=== PATIENT | female | born 1960 | race Caucasian/White ===

== ENCOUNTER 2019-05-19 08:08 | Outpatient (CLI) | payer MEDICARE, MEDICAID, SELFPAY ==
--- NOTE | 2019-05-19 08:17 | FL_ITS ---
WS: [id number] UPPER GI WITH AIR TECHNICAL: Double contrast upper GI FLUOROSCOPY TIME: 4.2 minutes CLINICAL INFORMATION: EPIGASTRIC PAIN COMPARISON: None. FINDINGS: Swallowing: Normal. Esophagus: Mild esophageal dysmotility with delayed emptying and tertiary contractions. Evidence of r eflux esophagitis in the distal one third esophagus. Mild narrowing of the distal esophagus at the an astomotic junction. Gastroesophageal reflux: Present to the mid and distal esophagus on the upright and supine imaging. M oderate sliding esophageal hiatal hernia involving the proximal gastric pouch with a small diverticul um. Stomach: Prior postoperative changes gastric bypass with proximal gastric pouch. Rapid opacification of anastomotic small bowel Deshawn limb. Visualized small bowel is normal in appearance. Other findings: Cholecystectomy. FL/[place] [id number] IMPRESSION: 1. Prior postoperative changes gastric bypass with proximal gastric pouch. Rap id filling of anastomotic small bowel Deshawn limb. 2. Moderate esophageal hiatal hernia involving the proximal gastric pouch with a small diverticulum. 3. Focal mild narrowing in the distal esophagus at the anastomotic junction. 4. Mild esophageal dysmotility with delayed emptying and active reflux visuali zed in the upright and supine position. 5. Reflux esophagitis in the mid and distal esophagus. 6. Opacified small bowel is normal in appearance.
== END 2019-05-19 08:09 | disposition home or self-care (01) ==
LOC: RAD 08:14
PROVIDERS: Family Provider Social Worker Clinical; Visit Provider Surgery
DX: R10.13 Epigastric pain (principal); K21.0 Gastro-esophageal reflux disease with esophagitis; K44.9 Diaphragmatic hernia without obstruction or gangrene
CPT/HCPCS: 74246

== ENCOUNTER 2019-05-20 09:37 | Day surgery (SDC) | payer MEDICARE, MEDICAID, SELFPAY ==
[2019-05-19 12:52] VITALS: BMI 42.0
--- NOTE | 2019-05-20 09:58 | PM.HPUD ---
H&P update H&P Update: DATE OF SURGERY/PROCEDURE: 05/20/19 DATE H&P PERFORMED: 05/04/19 H&P UPDATE INFORMATION: H&P completed within last 30 days and No changes to prior documentation PREOP DIAGNOSIS: EPIGASTRIC PAIN PRIMARY INDICATION FOR PROCEDURE: The same PLANNED PROCEDURE: Operation Date: 05/20/19 09:15 Proposed Procedures p EGD(Not Applicable) - Mello Arias MD Full H&P Perinent History: Medical/Surgical History: Medical History (Updated 05/05/19 @ 16:22 by Mello Arias MD) Anxiety (Acute) Bipolar disorder (Acute) Nausea (Acute) Family History: Family History (Updated 05/01/19 @ 15:57 by Jacy Leroy RN) Denies family history of Anesthesia complication Bleeding disorder Social History: Social History Smoking and tobacco status: current every day smoker cigarettes Packs smoked per day: 1 Quit status (tobacco): has tried quititng Second hand smoke exposure: No Alcohol intake: current Alcohol intake frequency: 0-2 Drinks per Day Alcohol type: beer and wine Desire information about alcohol rehabilitation?: No Adopted: No Caregiver/support person: No Lives independently: Yes Household members: spouse Housing: House Marital status: Highest education level completed: High School Graduate service: No Current occupational status: retired Current occupational exposures/hazards: No Pets and animals: Yes History of recent travel: No Sexually active: No Current gender identity: Male Ivis/Presybeterian: Denominational Special ivis needs: No Agree to transfusion: No Financial difficulty paying for basics: Decline to Answer
--- NOTE | 2019-05-20 10:12 | P.ANESASSM_ITS ---
Pre-Anesthetic Assessment Pre-Anesthetic Assessment: Height/Weight: Height 1.52 m Weight 97.522 kg Preop Diagnosis: EPIGASTRIC PAIN Proposed Procedure: Operation Date: 05/20/19 09:15 Proposed Procedures p EGD(Not Applicable) - Mello Arias MD Familial anesthetic complications: denies family complication Patient states she wakes up in a panic and has trouble breathing when she wakes up Was Beta Alfonso taken within 24 hours: N/A Social: Social History: Alcohol (case of beer a day if she can afford it) and Tobacco Packs per day: 1/4 Pack years: 40 Exam: Pre-Anes Outpt Exam: alert, oriented x 3 and clear to auscultation bilaterally Airway: Dentition: Chipped and Loose Additional comments: poor, black loose teeth on bottom Pulmonary: Pulmonary: COPD (smoking hx greater than 25 years) CV/HEM: CV/HEM: CAD (heart caths x2 states nothing significant and stress test was negative. 10-12 years ago) and HTN : : None reported Hepatic: Hepatic: None reported GI: GI: GERD and Hiatus hernia Comments: gastric bypass in 2003 Metabolic: Metabolic: Thyroid Musc/skel: Musc/skel: None reported Neuropsych: Neuropsych: Anxiety, Bipolar and Dementia Anesthetic Plan: ASA status: 3 Anesthesia: Anesthesia Evaluation Risk of > 500 ml blood loss (7ml/kg in children): No PFSH Anesthesia PFSH: Social History Smoking and tobacco status: current every day smoker cigarettes Packs smoked per day: 1 Quit status (tobacco): has tried quititng Second hand smoke exposure: No Alcohol intake: current Alcohol intake frequency: 0-2 Drinks per Day Alcohol type: beer and wine Desire information about alcohol rehabilitation?: No Adopted: No Caregiver/support person: No Lives independently: Yes Household members: spouse Housing: House Marital status: Highest education level completed: High School Graduate service: No Current occupational status: retired Current occupational exposures/hazards: No Pets and animals: Yes History of recent travel: No Sexually active: No Current gender identity: Male Ivis/Rastafarian: Tenriism Special ivis needs: No Agree to transfusion: No Financial difficulty paying for basics: Decline to Answer Data Anesthesia Cardiac Studies: No Data to Display
[2019-05-20 10:14] VITALS: BP 140/86; PULSE 99; RESP 18; TEMP 36.6; O2SAT 100
[2019-05-20] MEDS: sodium chloride 0.9% 1,000 ML 30 ML (10:16)
--- NOTE | 2019-05-20 10:27 | SUR.OPER ---
GE JUNCTION 35CM.. GASTRIC POUCH 7CM. GASTRO JEJUNOSTOMY DIAMETER 25MM. 35-37 HIATAL HERNIA
[2019-05-20 10:36] VITALS: BP 125/88; PULSE 74; RESP 18; TEMP 36.6; O2SAT 96
--- NOTE | 2019-05-20 10:41 | ANE.PACU2 ---
 Inpatient post-anesthesia follow up: Airway intact: Yes Vital signs: Temperature 97.9 F Pulse Rate 99 Respiratory Rate 18 Blood Pressure 140/86 Pulse Oximetry 100 Oxygen Delivery Me thod Room Air Oxygen Flow Rate Fraction of Inspir ed Oxygen Hydration adequate: Yes Nausea and vomiting: No Pain level: 2 Mental status: Baseline
[2019-05-20 10:51] VITALS: BP 129/87; PULSE 66; RESP 18; O2SAT 100
== END 2019-05-20 10:58 | disposition home or self-care (01) ==
PROVIDERS: Family Provider Social Worker Clinical; Visit Provider Surgery
PROC: 0DJ08ZZ Inspection of Upper Intestinal Tract, Via Natural or Artificial Opening Endoscopic (ICD-10-PCS; CPT 43235; principal; 2019-05-20 09:15)
DX: R10.13 Epigastric pain (principal); K44.9 Diaphragmatic hernia without obstruction or gangrene; F17.210 Nicotine dependence, cigarettes, uncomplicated; I25.10 Atherosclerotic heart disease of native coronary artery without angina pectoris; J44.9 Chronic obstructive pulmonary disease, unspecified; I10 Essential (primary) hypertension; K21.9 Gastro-esophageal reflux disease without esophagitis; Z98.84 Bariatric surgery status
CPT/HCPCS: 12345; 43235; J2704; J7030

== ENCOUNTER 2019-06-15 17:08 | Emergency (ER) | payer MEDICARE, MEDICAID, SELFPAY ==
[2019-06-15 17:13] VITALS: PULSE 63; RESP 18; TEMP 36.8; O2SAT 99
--- NOTE | 2019-06-15 18:48 | ED_ITS ---
Entered by Jo Ann Alcocer, acting as scribe for Jun 15, 2019 17:08 HPI - Dental/Oral General: Chief complaint: Dental/Oral Stated complaint: TOOTH ACHE Time Seen by Provider: 06/15/19 18:48 Source: patient Mode of arrival: ambulatory Limitations: no limitations History of Present Illness: HPI Narrative: 58 yo Female presents to ED with complaint of dental pain. Pt states that her pain is on the left side, bottom. Pt states that the pain started this morning. Pt has a history of polysubstance abuse and is in [facility]. Pt denies any other symptoms at this time. MD Complaint: tooth pain Location: Tooth # (17) Onset (ago): hour(s) Duration: constant Severity scale (1-10): 10 Relieving factors: nothing Exacerbating factors: nothing Context: other (history of poly substance abuse) Associated symptoms: Reports no associated symptoms; Denies ear or mastoid pain, fever(s), painful swallowing, sore throat or tongue swelling Treatment prior to arrival: none Review of Systems General: Reports: other (negative unless marked) Const: Denies: fever, chills, body aches, fatigue, malaise or diaphoresis Eyes: Denies: change in vision or blurry vision ENMT: Reports: dental pain; Denies: throat pain, painful swallowing, hoarseness, ear pain, ear discharge, Change in hearing or nasal discharge Card: Denies: chest pain, palpitations, irregular heart rhythm, syncope, pre- syncope, shortness of breath on exertion or shortness of breath when lying down Resp: Denies: shortness of breath, productive cough, non-productive cough, wheezing, coughing up blood or chest congestion GI: Denies: abdominal pain, nausea, vomiting, vomiting blood, coffee grounds in vomit, diarrhea, constipation, cramping, blood in stool or black tarry stool : Denies: flank pain, painful urination, urinary frequency, urinary urgency, decreased urine ouput, urinary incontinence or blood in urine Musc: Denies: neck pain, back pain, extremity pain, extremity swelling, joint pain, joint swelling, joint warmth or joint stiffness Skin/Breast: Denies: rash, skin tenderness or yellow skin Neuro: Denies: headache, numbness in extremities, weakness in extremities, changes in sensation, lack of coordination, difficulty walking, dizziness, vertigo or confusion Endo: Denies: excessive thirst, tired all the time, cold intolerance, excessive sweating, flushing or hot flashes Varun/Lymph: Denies: easy bruising, easy bleeding, petechiae or enlarged lymph nodes All/Imm: Denies: hives, throat swelling, tongue swelling, facial swelling or acute wheezing PFSH ED PFSH: Medical History Anxiety Bipolar disorder Nausea Surgical History Epigastric pain Hiatal hernia was appreciated otherwise normal gastric anatomy status post gastric bypass except for a dilated gastrojejunostomy. History of 2 sections History of carpal tunnel surgery of left wrist History of laparoscopic cholecystectomy History of left knee replacement History of right knee joint replacement History of Deshawn-en-Y gastric bypass (~2003) Status post ORIF of fracture of ankle Family History Denies family history of Anesthesia complication Bleeding disorder Social History Smoking and tobacco status: current every day smoker cigarettes Packs smoked per day: 1 Quit status (tobacco): has tried quititng Second hand smoke exposure: No Alcohol intake: current Alcohol intake frequency: 0-2 Drinks per Day Alcohol type: beer and wine Desire information about alcohol rehabilitation?: No Adopted: No Caregiver/support person: No Lives independently: Yes Household members: spouse Housing: House Marital status: Highest education level completed: High School Graduate service: No Current occupational status: retired Current occupational exposures/hazards: No Pets and animals: Yes History of recent travel: No Sexually active: No Current gender identity: Male Ivis/Methodist: Anglican Special ivis needs: No Agree to transfusion: No Financial difficulty paying for basics: Decline to Answer Physical Exam Const: COMMON NORMALS: no apparent distress, oriented x3, no limitations, healthy appearing and well nourished EXAM LIMITATIONS: no altered mental status GENERAL APPEARANCE: cooperative, well kempt and well developed ORIENTATION/CONSCIOUSNESS: Yes awake HENMT: COMMON NORMALS: normocephalic, head/scalp atraumatic, hearing grossly normal bilaterally, external ears normal, EAC's normal, external nose normal and moist oral mucous membranes HEAD & SCALP: normal to inspection, normocephalic and atraumatic FACE & SINUS: normal facial exam and face symmetric NOSE: external nose normal and nares normal EXTERNAL EAR: Yes external ears normal EXTERNAL AUDITORY CANAL: EAC's normal MOUTH: oral and palatal mucosa normal and tongue normal TEETH & GINGIVA: Yes abnormal tooth and associated gingiva lower left third molar tender Eye: COMMON NORMALS: PERRL, EOMs intact bilaterally, conjunctivae normal and no scleral icterus GENERAL EYE: normal appearance of both eyes and normal light reflex CONJUNCTIVA: Yes conjunctivae normal SCLERA: sclerae normal CORNEA: Yes corneas normal PUPIL: Yes PERRL DIRECT OPHTHALMOSCOPY: Yes normal light reflex Neck/C-Spine: COMMON NORMALS: full ROM, no lymphadenopathy, supple, no meningeal signs and no JVD GENERAL: Yes normal visual inspection and Yes trachea midline CERVICAL SPINE: Yes cervical ROM normal Chest: COMMONS NORMALS: inspection of chest normal and palpation of chest normal Resp: COMMON NORMALS: normal respiratory effort, no retractions, no use of accessory muscles and clear to auscultation bilaterally EFFORT & INSPECTION: Yes able to speak in complete sentences AUSCULTATION: clear to auscultation bilaterally Cardio: COMMON NORMALS: no JVD, regular rate, regular rhythm, S1 normal heart sound, S2 normal heart sound, no gallops, no clicks, no murmurs and no rub JUGULAR VENOUS DISTENTION: no JVD RATE: regular rate RHYTHM: regular rhythm HEART SOUNDS: S1 normal and S2 normal GI: COMMON NORMALS: soft to palpation, non-tender, no hepatosplenomegaly and no masses INSPECTION: Yes normal to inspection PALPATION: Yes soft and Yes no hepatosplenomegaly : COMMON NORMALS: Yes no CVA tenderness BLADDER/KIDNEY EXAM: Yes no CVA tenderness Back/Pelvis: COMMON NORMALS: no CVA tenderness, thoracic and lumbar spine normal to inspection, no thoracic nor lumbar tenderness and thoraco-lumbar ROM normal Extremity: COMMON NORMALS: normal to inspection, full ROM, normal capillary refill, no joint enlargement, no clubbing, cyanosis or edema and no calf tenderness Neuro: COMMON NORMALS: oriented x3, CN's II-XII intact bilaterally, moves all extremities, no focal motor deficits and no sensory deficits noted MENINGEAL SIGNS: Yes no meningeal signs Psych: COMMON NORMALS: mental status grossly normal, thought process normal, cooperative, affect normal, speech normal and activity/motor behavior normal APPEARANCE: Yes well kempt SPEECH: Yes normal speech THOUGHT PROCESS: normal thought process Skin: COMMON NORMALS: no rashes or lesions noted, skin turgor normal, no jaundice, no petechiae and no mottling GENERAL SKIN EXAM: no rashes or lesions noted and turgor normal Course Vital Signs: Vital signs: Vital Signs Temperature 98.2 F 06/15/19 17:13 Pulse Rate 67 06/15/19 19:54 Respiratory Rate 18 06/15/19 19:54 Blood Pressure 125/74 06/15/19 19:54 Pulse Oximetry 98 06/15/19 19:54 MDM - Dental/Oral MDM Narrative: Medical decision making narrative: Bettie has no sign of Mango's angina, deep space infection, airway compromise or otherwise. She is overall very poor dentition but her left inferior most posterior molar is tender. I will place her on Cleocin and she agrees to take Tylenol Motrin as needed for pain. We did review at length the signs and symptoms for which to return to ER and she agrees to do so if necessary. Otherwise she states she will follow-up with her dentist as instructed. Discharge Plan Discharge Patient Disposition: Home, Self-Care Clinical Impression: Toothache, Dental caries Condition: Stable Prescriptions: New Cleocin HCl 150 mg capsule 300 mg PO Q6H 10 Days Qty: 80 RF: 0 No Action quetiapine 400 mg tablet 400 mg PO ONCE RF: 0 buspirone 15 mg tablet 15 mg PO TID RF: 0 venlafaxine [Effexor XR] 150 mg capsule,extended release 24hr 225 mg PO QAM RF: 0 atorvastatin 40 mg tablet 40 mg PO QDAY RF: 0 lisinopril 20 mg tablet 20 mg PO QDAY RF: 0 levothyroxine 75 mcg capsule 75 mcg PO QDAY RF: 0 Discharge Orders: Discharge Order (Routine); Ordered 06/15/19 Ordered By: Nikki Chao Referrals: Leena Morrison, ENVIRONMENTAL HEALTH SANITARIAN-FLIGHT ENGINEER INSTRUCTOR [Family Provider] - Discharge Diet: Advance as tolerated Patient Instructions: Dental Caries (ED), Toothache (ED) Activity Restrictions/Additional Instructions: Please return to the ER immediately for any of the signs or symptoms listed on your discharge instruction sheets, worsening/changing of your symptoms, you are not getting better as quickly as expected, or for ANY other cause or concerns. Alternate Tylenol and Motrin for your pain as well as Anusol which is available [id number]. Be certain to follow-up with a dentist as soon as possible for definitive management of your cavity. Discharge Date/Time: 06/15/19 19:56 Coding Level of Care Code ED Vault Teller for Chg Fwd Exam Comprehensive The documentation recorded by the Leodan coe Carmen, accurately reflects the service I personally performed and the decisions made by Jeremie puente Eli N Jun 15, 2019 17:08
[2019-06-15] MEDS: clindamycin 150 mg Capsule 450 MG PO (19:19)
[2019-06-15 19:54] VITALS: BP 125/74; PULSE 67; RESP 18; O2SAT 98
== END 2019-06-15 19:56 | disposition home or self-care (01) ==
PROVIDERS: Emergency Provider Emergency Medicine; Family Provider Social Worker Clinical
DX: K02.9 Dental caries, unspecified (principal); K08.89 Other specified disorders of teeth and supporting structures; F17.210 Nicotine dependence, cigarettes, uncomplicated
CPT/HCPCS: 12345; 99281; 99283

== ENCOUNTER → 2019-07-23 08:41 | Outpatient (BNVA) | payer MEDICARE, MEDICAID, SELFPAY | PROVIDERS: Family Provider Social Worker Clinical; PCP Internal Medicine; Visit Provider Psychiatry & Neurology Psychiatry | DX: F60.9 Personality disorder, unspecified (principal); F17.210 Nicotine dependence, cigarettes, uncomplicated; F33.2 Major depressive disorder, recurrent severe without psychotic features; F15.20 Other stimulant dependence, uncomplicated; F10.20 Alcohol dependence, uncomplicated | CPT/HCPCS: 99213 ==

== ENCOUNTER → 2019-08-06 09:04 | Outpatient (BNVA) | payer MEDICARE, MEDICAID, SELFPAY | PROVIDERS: Family Provider Social Worker Clinical; PCP Internal Medicine; Visit Provider Psychiatry & Neurology Psychiatry | DX: F60.9 Personality disorder, unspecified (principal); F17.210 Nicotine dependence, cigarettes, uncomplicated; F33.2 Major depressive disorder, recurrent severe without psychotic features; F15.20 Other stimulant dependence, uncomplicated; F10.20 Alcohol dependence, uncomplicated | CPT/HCPCS: 99213 ==

== ENCOUNTER → 2019-09-03 07:38 | Outpatient (BNVA) | payer MEDICARE, MEDICAID, SELFPAY | PROVIDERS: Family Provider Social Worker Clinical; PCP Internal Medicine; Visit Provider Psychiatry & Neurology Psychiatry | DX: F60.9 Personality disorder, unspecified (principal); F17.210 Nicotine dependence, cigarettes, uncomplicated; F33.2 Major depressive disorder, recurrent severe without psychotic features; F15.20 Other stimulant dependence, uncomplicated; F10.20 Alcohol dependence, uncomplicated | CPT/HCPCS: 99213 ==

== ENCOUNTER 2019-10-06 06:00 | Outpatient (RCR) | payer MEDICARE, MEDICAID, SELFPAY | END 2019-10-06 23:59 | disposition home or self-care (01) | LOC: MPT 06:00 | PROVIDERS: PCP Family Medicine; Referring Provider Registered Nurse; Visit Provider Registered Nurse | DX: R26.9 Unspecified abnormalities of gait and mobility (principal); Z91.81 History of falling | CPT/HCPCS: 97110; 97161 ==

== ENCOUNTER 2022-02-13 14:15 | Inpatient (IN) | payer MEDICARE, MEDICAID, SELFPAY ==
[2022-02-13 14:23] VITALS: BMI 23.3
[2022-02-13 14:24] VITALS: BP 183/78; PULSE 82; RESP 17; TEMP 36.6; O2SAT 95
[2022-02-13] MEDS: LORazepam 2 mg Tablet PO (17:55)
[2022-02-13] MEDS: quetiapine 300 mg Tablet PO (20:34)
[2022-02-13] MEDS: quetiapine 100 mg Tablet PO (20:34)
[2022-02-13] MEDS: dicyclomine 10 mg Capsule PO (20:34)
[2022-02-13 22:00] VITALS: BP 100/64; PULSE 96; RESP 15; TEMP 36.8; O2SAT 97
[2022-02-14 06:00] VITALS: BP 111/84; PULSE 80; RESP 18; TEMP 36.4; O2SAT 98
[2022-02-14] MEDS: venlafaxine ER (24HR) 37.5 mg Capsule 112.5 MG PO (06:27)
[2022-02-14] MEDS: quetiapine 100 mg Tablet 200 MG PO (06:28)
[2022-02-14] MEDS: atorvastatin 40 mg Tablet 20 MG PO (07:49)
[2022-02-14] MEDS: lithium carbonate 300 mg Capsule PO ×2 (07:49→17:08)
[2022-02-14] MEDS: pantoprazole DR 40 mg Tablet PO (07:49)
[2022-02-14] MEDS: folic acid 1 mg Tablet PO (07:49)
[2022-02-14] MEDS: multivitamin therapeutic Tablet 1 TAB PO (07:49)
[2022-02-14] MEDS: dicyclomine 10 mg Capsule PO ×4 (07:50→20:23)
[2022-02-14] MEDS: levothyroxine 75 mcg Tablet PO (07:50)
[2022-02-14] MEDS: thiamine 100 mg Tablet PO (07:50)
[2022-02-14] MEDS: LORazepam 2 mg Tablet PO ×2 (08:28→11:28)
--- NOTE | 2022-02-14 10:12 | P.NPUHP_ITS ---
Providers/Chief Complaint Admitting Physician: Torey Lopez MD Primary Care Provider: Yoan Escoto Chief Complaint: SI HPI NPU History of Present Illness Yolie Mccann is a 61 year old female who presents the outside hospital with concern for suicidal thoughts, intoxicated with a history of other addiction as well who was transferred to [facility] and admitted to the neuropsychiatric unit for definitive treatment of those issues. She is currently taking Effexor, Seroquel, and Bul[place]de. She presents today reporting she ?fell apart? last night and needed to go to a safe place. She has been psychiatrically hospitalized 4 times, sees a nurse practitioner for her medications and has been on a number of medications. She reports she quit tobacco in August 2020, alcohol daily, marijuana once or twice but not currently, methamphetamine which she began at 45 years old and stopped a year ago and denies any other illicit drug use. She has been to several rehabs over the course of her life, had a DUI 9 years ago but no other drug and alcohol related charges. Her mental health issues began in elementary school as people were bullying her at the time. Her depression includes passive wish, suicidal ideation, and 12 suicide attempts. She endorses having a plan to take Klonopin with beer to commit suicide. She reports self-injurious behaviors, the last time of which was a couple of years ago. She had begun drinking when she was 10 years old which became problematic in high school. She had presented to the hospital after drinking heavily and reports she does not know where she is currently as they had just placed us here. She denies expressing suicidal ideation in the hospital and endorses she only needs help ?mellowing herself out?. Psychiatric History: As above. Substance Abuse History: As above. Family History: She reports mental health and addiction issues on both sides of the family and denies suicide attempts or completions on either side of the family. Developmental History: She denies any issues with her or , learned to walk and talk and met her developmental milestones on time, and denies any need for speech therapy, learning support, emotional support or special education classes. Psychosocial History: She reports her parents were together when she was born and remained together. S he has a younger brother who is a product of the same union. Neither of her parents have any additional children. She described her childhood as alright and reports emotional abuse from school but denies physical or sexual abuse. She denies CYS involvement. She was attacked by her services dog and required 40 stitches. She graduated high school and got her PhD in veterinary medicine. She endorses being heterosexual with her longest relationship being 10 years. She has been and once, has 2 biological children, has never been in the and endorses being anabaptist. 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 She currently lives in an apartment by herself with her dog. Legal History: She has been to half-way 3 times, the longest time of which was 6 months. Medical History: She reports an allergy to morphine. She reports having had bilateral knee replacements and unilateral ankle replacement. 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 She delivered her children vaginally. She began menstruating around 11 and reports they were normal. Meds NPU Home Medications Medication Instructions Recorded Confirmed Last Taken Type levothyroxine 75 mcg capsule 75 mcg PO DAILY #30 caps 06/26/19 02/13/22 02/13/22 09:00 Rx folic acid 1 mg tablet 1 mg PO DAILY #30 tabs 08/12/19 02/13/22 02/13/22 09:00 Rx atorvastatin 10 mg tablet 10 mg PO DAILY 02/13/22 02/13/22 02/13/22 09:00 History dicyclomine 10 mg capsule 10 mg PO QID 02/13/22 02/13/22 02/13/22 09:00 History lithium carbonate 300 mg tablet 300 mg PO BID 02/13/22 02/13/22 02/13/22 09:00 History omeprazole 20 mg capsule,delayed 20 mg PO BID 02/13/22 02/13/22 02/13/22 09:00 History release quetiapine 200 mg tablet 200 mg PO QAM 02/13/22 02/13/22 02/13/22 09:00 History quetiapine 400 mg tablet 400 mg PO BEDTIME 02/13/22 02/13/22 02/12/22 21:00 Hi story venlafaxine 37.5 mg 112.5 mg PO QAM 02/13/22 02/13/22 02/13/22 09:00 History capsule,extended release 24 hr Allergies Allergy/AdvReac Type Severity Reaction Status Date / Time morphine Allergy Severe ALGY-Hives Verified 06/25/19 11:39 PFSH NPU PFSH: Medical History (Updated 02/14/22 @ 14:48 by Torey Lopez MD) Anxiety Bipolar disorder Black tarry stools Bloody stools Nausea Thyroid condition Surgical History Epigastric pain Hiatal hernia was appreciated otherwise normal gastric anatomy status post gastric bypass except for a dilated gastrojejunostomy. History of 2 sections History of carpal tunnel surgery of left wrist History of laparoscopic cholecystectomy History of left knee replacement History of right knee joint replacement History of Deshawn-en-Y gastric bypass (~2003) Status post ORIF of fracture of ankle Family History Denies family history of Anesthesia complication Bleeding disorder Social History (Updated 06/26/19 @ 09:13 by Edmundo Almendarez LPN) Smoking and tobacco status: current every day smoker cigarettes Packs smoked per day: 1 Quit status (tobacco): has tried quititng Number of times tried to quit tobacco: 8 Second hand smoke exposure: No Alcohol intake: current Alcohol intake frequency: 0-2 Drinks per Day Alcohol type: beer and wine Desire information about alcohol rehabilitation?: No Adopted: No Caregiver/support person: No Lives independently: Yes Household members: spouse Housing: House Marital status: Highest education level completed: High School Graduate service: No Current occupational status: retired Current occupational exposures/hazards: No Pets and animals: Yes History of recent travel: No Sexually active: No Current gender identity: Male Ivis/Zoroastrian: Christianity Special ivis needs: No Agree to transfusion: No Financial difficulty paying for basics: Decline to Answer Mental Status Exam MSE Comments: This is well nourished, older white female, looking much older than her stated age, with limited grooming and eye contact. No abnormal movements except for mild psychomotor retardation. Cooperative with exam in mild distress. Speech was slightly decreased volume and normal rate. Mood described as jeannine crabby, affect is congruent. Thought process, organized. Thought content: patient endorses suicidal and homicidal ideation, no delusions reported but delusions noted, and denies auditory or visual hallucinations though she reports seeing her tv flashing red. Attention and concentration are intact and memory appeared reliable but none were formally tested. She is alert and oriented times three. Insight and judgment are limited. Impulse control is limited. Vitals/I&O/Wt Last Vital Signs Temp 97.6 F 02/14/22 06:00 Pulse 80 02/14/22 06:00 Resp 18 02/14/22 06:00 BP 111/84 02/14/22 06:00 Pulse Ox 98 02/14/22 06:00 O2 Del Method 02/14/22 06:00 Weight last 48 hrs Weight 59.738 kg A&P Assessment and plan (1) Major depressive disorder, recurrent severe without psychotic features: (2) Nicotine dependence, unspecified, uncomplicated: Qualifiers: Nicotine product type: cigarettes Qualified Code(s): F17.210 - Nicotine dependence, cigarettes, uncomplicated (3) Unspecified personality disorder: (4) Other stimulant dependence, uncomplicated: (5) Alcohol use disorder, severe, dependence: (6) Epigastric pain: (7) Methamphetamine use disorder, severe: Plan This is a 61 year old white woman with a history of trauma, alcohol and methamphetamine use and genetic loading for mental health and addiction issues, who presents after a night of heavy drinking reporting she was not feeling safe, endorsing suicidal and homicidal ideation, and wanting to discuss changes in her medications and treatment at this time. 1. Continue current medications 2. Encourage individual, group and milieu therapy 3. Continue q-15 minute check for safety 4. Recommend sober living treatment at the highest level of care to which the patient is willing to commit. 5. Placed on [facility] protocol and gather collateral information. Involuntary Hold Information 96 Hour Hold: 96 Hour Involuntary Admission: Yes 96 Hour Hold Ending Date: 02/19/22 96 Hour Hold Ending Time: 14:10 Attestations NPU Medical Necessity Statement*: Inpatient hospitalization is medically necessary and the clinically appropriate intervention at this time. We will monitor medications and make changes as indicated. Patient will be in the hospital for over two midnights. Likely length of stay is three to five days. Coding Level of Care Code Acute Skin Former for [facility] Castellano Diagnoses Major depressive disorder, recurrent severe without psychotic features F33.2 Nicotine dependence, unspecified, uncomplicated F17.210 Nicotine product type: cigarettes Unspecified personality disorder F60.9 Other stimulant dependence, uncomplicated F15.20 Alcohol use disorder, severe, dependence F10.20 Epigastric pain R10.13 Methamphetamine use disorder, severe F15.20
--- NOTE | 2022-02-14 10:14 | PC.NURSE ---
PT CAME TO NURSES STATION STATING SHE WANTED TO LEAVE AMA. PT WAS EDUCATED SHE IS ON 96H HOLD. PT STATED SHE WAS GOING TO GO HOME AND HURT HERSELF SHE WAS JUST GOING TO GO HOME AND KILL HER NEIGHBOR. PROVIDER NOTIFIED.
[2022-02-14] MEDS: OLANZapine 5 mg ODT PO (10:25)
[2022-02-14] MEDS: haloperidol 5 mg Tablet PO (10:25)
[2022-02-14] MEDS: diphenhydrAMINE 50 mg Capsule PO (11:30)
[2022-02-14 14:00] VITALS: RESP 16
[2022-02-14] MEDS: quetiapine 100 mg Tablet PO (20:23)
[2022-02-14] MEDS: quetiapine 300 mg Tablet PO (20:23)
[2022-02-14] MEDS: trazodone 50 mg Tablet PO (20:23)
[2022-02-14 22:00] VITALS: BP 107/74; PULSE 75; RESP 16; TEMP 37; O2SAT 97
[2022-02-15] MEDS: acetaminophen 325 mg Tablet 650 MG PO ×3 (01:36→16:18)
[2022-02-15] MEDS: ondansetron 4 MG Tablet PO (01:37)
--- NOTE | 2022-02-15 01:40 | PC.NURSE ---
changed pt colostomy bag pt tolerated it well.
[2022-02-15 05:59] VITALS: BP 107/74; PULSE 75; RESP 16; TEMP 37; O2SAT 97
[2022-02-15] MEDS: venlafaxine ER (24HR) 37.5 mg Capsule 112.5 MG PO (06:07)
[2022-02-15] MEDS: quetiapine 100 mg Tablet 200 MG PO (06:07)
[2022-02-15 06:34] VITALS: BP 138/76; PULSE 63; RESP 17; TEMP 36.8; O2SAT 98
[2022-02-15] MEDS: folic acid 1 mg Tablet PO (08:45)
[2022-02-15] MEDS: atorvastatin 40 mg Tablet 20 MG PO (08:45)
[2022-02-15] MEDS: thiamine 100 mg Tablet PO (08:46)
[2022-02-15] MEDS: pantoprazole DR 40 mg Tablet PO (08:46)
[2022-02-15] MEDS: dicyclomine 10 mg Capsule PO ×4 (08:46→20:29)
[2022-02-15] MEDS: multivitamin therapeutic Tablet 1 TAB PO (08:46)
[2022-02-15] MEDS: levothyroxine 75 mcg Tablet PO (08:46)
[2022-02-15] MEDS: lithium carbonate 300 mg Capsule PO ×2 (08:46→18:18)
--- NOTE | 2022-02-15 13:16 | W.PM.NPUPNS ---
Subjective NPU Subjective: Patient presented today reporting that she is feeling okay. She reports that she is unclear why she was on the dosing of Effexor XR she finds her self on. We discussed the risks, benefits and alternatives of increasing her Effexor XR to 150 mg p.o. daily and she understood and agreed to proceed as documented in this note. Mental Status Exam MSE Comments: This is well nourished, older white female, looking much older than her stated age, with limited grooming and eye contact. No abnormal movements except for mild psychomotor retardation. Cooperative with exam in mild distress. Speech was slightly decreased volume and normal rate. Mood described as okay, affect is congruent. Thought process, organized. Thought content: patient endorses suicidal and homicidal ideation, no delusions reported but delusions noted, and denies auditory or visual hallucinations though she reports seeing her tv flashing red. Attention and concentration are intact and memory appeared reliable but none were formally tested. She is alert and oriented times three. Insight and judgment are limited. Impulse control is limited. Vitals/I&O/Wt Last Vital Signs Temp 98.3 F 02/15/22 06:34 Pulse 63 02/15/22 06:34 Resp 17 02/15/22 06:34 BP 138/76 02/15/22 06:34 Pulse Ox 98 02/15/22 06:34 O2 Del Method 02/15/22 06:34 Weight last 48 hrs Weight 59.738 kg A&P Assessment and plan (1) Major depressive disorder, recurrent severe without psychotic features: (2) Nicotine dependence, unspecified, uncomplicated: Qualifiers: Nicotine product type: cigarettes Qualified Code(s): F17.210 - Nicotine dependence, cigarettes, uncomplicated (3) Unspecified personality disorder: (4) Other stimulant dependence, uncomplicated: (5) Alcohol use disorder, severe, dependence: (6) Epigastric pain: (7) Methamphetamine use disorder, severe: Plan This is a 61 year old white woman with a history of trauma, alcohol and methamphetamine use and genetic loading for mental health and addiction issues, who presents after a night of heavy drinking reporting she was not feeling safe, endorsing suicidal and homicidal ideation, and wanting to discuss changes in her medications and treatment at this time. 1. Continue current medications. Increase Effexor XR to 150 mg p.o. daily. 2. Encourage individual, group and milieu therapy 3. Continue q-15 minute check for safety 4. Recommend sober living treatment at the highest level of care to which the patient is willing to commit. 5. Placed on [facility] protocol and gather collateral information. Involuntary Hold Information 96 Hour Hold: 96 Hour Involuntary Admission: Yes 96 Hour Hold Ending Date: 02/19/22 96 Hour Hold Ending Time: 14:10 Attestations NPU Medical Necessity Statement*: Inpatient hospitalization is medically necessary and the clinically appropriate intervention at this time. We will monitor medications and make changes as indicated. Likely length of stay is 3-5 days. Coding Level of Care Code Acute Motor Pool Clerk for g Fwd Diagnoses Major depressive disorder, recurrent severe without psychotic features F33.2 Nicotine dependence, unspecified, uncomplicated F17.210 Nicotine product type: cigarettes Unspecified personality disorder F60.9 Other stimulant dependence, uncomplicated F15.20 Alcohol use disorder, severe, dependence F10.20 Epigastric pain R10.13 Methamphetamine use disorder, severe F15.20
[2022-02-15 14:00] VITALS: BP 119/80; PULSE 68; RESP 17; TEMP 36.4; O2SAT 100
[2022-02-15] MEDS: hyDROXYzine 25 mg Capsule 50 MG PO ×2 (14:17→16:19)
[2022-02-15] MEDS: quetiapine 100 mg Tablet PO (20:29)
[2022-02-15] MEDS: quetiapine 300 mg Tablet PO (20:29)
[2022-02-15 22:00] VITALS: BP 119/80; PULSE 68; RESP 17; TEMP 36.4; O2SAT 100
[2022-02-16 06:00] VITALS: BP 114/79; PULSE 72; RESP 17; TEMP 37; O2SAT 97
[2022-02-16] MEDS: quetiapine 100 mg Tablet 200 MG PO (06:07)
[2022-02-16] MEDS: venlafaxine ER (24HR) 37.5 mg Capsule 150 MG PO (06:08)
[2022-02-16] MEDS: thiamine 100 mg Tablet PO (09:24)
[2022-02-16] MEDS: pantoprazole DR 40 mg Tablet PO (09:24)
[2022-02-16] MEDS: atorvastatin 40 mg Tablet 20 MG PO (09:24)
[2022-02-16] MEDS: multivitamin therapeutic Tablet 1 TAB PO (09:24)
[2022-02-16] MEDS: folic acid 1 mg Tablet PO (09:24)
[2022-02-16] MEDS: lithium carbonate 300 mg Capsule PO ×2 (09:24→18:23)
[2022-02-16] MEDS: dicyclomine 10 mg Capsule PO ×4 (09:24→21:00)
[2022-02-16] MEDS: levothyroxine 75 mcg Tablet PO (09:24)
--- NOTE | 2022-02-16 09:41 | PC.NURSE ---
Patient denies HI and AH. Patient stated she constantly has suicidal thoughts. She states she knows how to do it now and would do it by overdosing with a bunch of pills or I'd venetian blind assembler front of a train. She also says she kept seeing auditory hallucinations of red flashes on the tv and played with a hologram of a kid's ball last night. She stated another patient had made a comment this morning that she smelled bad and that it made her feel really bad about herself. Patient was calm and cooperative throughout assessment.
[2022-02-16] MEDS: OLANZapine 5 mg ODT PO (12:46)
[2022-02-16 14:00] VITALS: BP 117/82; PULSE 82; RESP 18; TEMP 36.9; O2SAT 98
[2022-02-16] MEDS: diphenhydrAMINE 50 mg Capsule PO (15:45)
[2022-02-16] MEDS: LORazepam 2 mg Tablet PO (15:45)
[2022-02-16] MEDS: haloperidol 5 mg Tablet PO (15:45)
--- NOTE | 2022-02-16 16:33 | W.PM.NPUPNS ---
Subjective NPU Subjective: Patient presents today having recently had superficial cuts made by a part of her spoon to release the endorphins. Vet a long discussion about her self-injurious behavior which she reports goes back 20 years. She reports that is what her service dogs have helped her with staying away from that behavior. We discussed the likelihood of adding Abilify as she reports that what she is taking is not currently managing that after a discussion of the risks, benefits and alternatives we agreed that we would check her lithium level and then consider Abilify. Otherwise she reports that she is always in the state of internal anger and rage and that self-injurious behaviors have helped release that irritability Mental Status Exam MSE Comments: This is well nourished, older white female, looking much older than her stated age, with limited grooming and eye contact. Superficial scratch ashley on her left anterior forearm from SIB. no abnormal movements except for mild psychomotor agitation. Cooperative with exam in mild to moderate distress. Speech was slightly decreased volume and normal rate. Mood described as irritable/agitated, affect is congruent. Thought process, organized. Thought content: patient endorses suicidal and homicidal ideation, no delusions reported but delusions noted, and denies auditory or visual hallucinations though she reports seeing her tv flashing red. Attention and concentration are intact and memory appeared reliable but none were formally tested. She is alert and oriented times three. Insight and judgment are limited. Impulse control is limited. Vitals/I&O/Wt Last Vital Signs Temp 98.4 F 02/16/22 14:00 Pulse 82 02/16/22 14:00 Resp 18 02/16/22 14:00 BP 117/82 02/16/22 14:00 Pulse Ox 98 02/16/22 14:00 O2 Del Method 02/16/22 06:00 A&P Assessment and plan (1) Major depressive disorder, recurrent severe without psychotic features: (2) Nicotine dependence, unspecified, uncomplicated: Qualifiers: Nicotine product type: cigarettes Qualified Code(s): F17.210 - Nicotine dependence, cigarettes, uncomplicated (3) Unspecified personality disorder: (4) Other stimulant dependence, uncomplicated: (5) Alcohol use disorder, severe, dependence: (6) Epigastric pain: (7) Methamphetamine use disorder, severe: Plan This is a 61 year old white woman with a history of trauma, alcohol and methamphetamine use and genetic loading for mental health and addiction issues, who presents after a night of heavy drinking reporting she was not feeling safe, endorsing suicidal and homicidal ideation, and wanting to discuss changes in her medications and treatment at this time. 1. Continue current medications. Increase Effexor XR to 150 mg p.o. daily. We will consider initiating Abilify after we get a lithium level to identify whether an increase is indicated. 2. Encourage individual, group and milieu therapy 3. Continue q-15 minute check for safety 4. Recommend sober living treatment at the highest level of care to which the patient is willing to commit. 5. Placed on [facility] protocol and gather collateral information. Involuntary Hold Information 96 Hour Hold: 96 Hour Involuntary Admission: Yes 96 Hour Hold Ending Date: 02/19/22 96 Hour Hold Ending Time: 14:10 Attestations U Medical Necessity Statement*: Inpatient hospitalization is medically necessary and the clinically appropriate intervention at this time. We will monitor medications and make changes as indicated. Likely length of stay is 3-5 days. Coding Level of Care Code Acute Casing Operator for [facility] Fwd Diagnoses Major depressive disorder, recurrent severe without psychotic features F33.2 Nicotine dependence, unspecified, uncomplicated F17.210 Nicotine product type: cigarettes Unspecified personality disorder F60.9 Other stimulant dependence, uncomplicated F15.20 Alcohol use disorder, severe, dependence F10.20 Epigastric pain R10.13 Methamphetamine use disorder, severe F15.20
--- NOTE | 2022-02-16 17:58 | PC.NURSE ---
Patient broke a spoon and has several self-inflicted superficial cuts to her left forearm made by the broken spoon. Patient calmly asked for something to put on the wound and refused to tell staff what she used. Upon searching her room and patient, staff found the broken spoon. When this RN asked if anything in particular brought on her suicidal thoughts she stated, Just...life sucks. Just everything. I get so angry. I'd rather just take a gun and blow my head off. Patient verbally redirected and medicated with success.
[2022-02-16 20:17] VITALS: BP 93/60; PULSE 83; RESP 16; O2SAT 95
[2022-02-16] MEDS: quetiapine 300 mg Tablet PO (21:00)
[2022-02-16] MEDS: quetiapine 100 mg Tablet PO (21:00)
[2022-02-17] MEDS: quetiapine 100 mg Tablet 200 MG PO (05:13)
[2022-02-17] MEDS: venlafaxine ER (24HR) 37.5 mg Capsule 150 MG PO (05:13)
[2022-02-17 06:00] VITALS: BP 111/80; PULSE 78; RESP 16; O2SAT 99
[2022-02-17] MEDS: LORazepam 2 mg Tablet PO (07:16)
[2022-02-17] MEDS: multivitamin therapeutic Tablet 1 TAB PO (07:17)
[2022-02-17] MEDS: thiamine 100 mg Tablet PO (07:17)
[2022-02-17] MEDS: pantoprazole DR 40 mg Tablet PO (07:18)
[2022-02-17] MEDS: lithium carbonate 300 mg Capsule PO ×2 (07:18→18:39)
[2022-02-17] MEDS: folic acid 1 mg Tablet PO ×2 (07:18→07:56)
[2022-02-17] MEDS: levothyroxine 75 mcg Tablet PO (07:19)
[2022-02-17] MEDS: atorvastatin 40 mg Tablet 20 MG PO (07:19)
[2022-02-17] MEDS: dicyclomine 10 mg Capsule PO ×4 (07:54→20:34)
[2022-02-17] MEDS: acetaminophen 325 mg Tablet 650 MG PO (09:41)
[2022-02-17] MEDS: hyDROXYzine 25 mg Capsule 50 MG PO (09:41)
[2022-02-17] MEDS: OLANZapine 5 mg ODT PO (12:22)
[2022-02-17 14:00] VITALS: BP 106/72; PULSE 90; RESP 20; TEMP 36.3; O2SAT 98
--- NOTE | 2022-02-17 14:12 | P.NPUPN_ITS ---
Subjective NPU Subjective: Patient was in today reporting that she was open to making medication changes to help with her irritability. We were awaiting her lithium level and agreed we will increase if the it was subtherapeutic. Otherwise we would consider adding Abilify. She denied having any thoughts or self-injurious behavior. Mental Status Exam MSE Comments: This is well nourished, older white female, looking much older than her stated age, with limited grooming and eye contact. Superficial scratch ashley on her left anterior forearm from SIB. no abnormal movements except for mild psychomotor agitation. Cooperative with exam in mild distress. Speech was slightly decreased volume and normal rate. Mood described as little better today, affect is congruent. Thought process, organized. Thought content: patient endorses suicidal and homicidal ideation, no delusions reported but delusions noted, and denies auditory or visual hallucinations though she reports seeing her tv flashing red. Attention and concentration are intact and memory appeared reliable but none were formally tested. She is alert and oriented times three. Insight and judgment are limited. Impulse control is limited. Vitals/I&O/Wt Last Vital Signs Temp 97.4 F L 02/17/22 14:00 Pulse 90 02/17/22 14:00 Resp 20 H 02/17/22 14:00 BP 106/72 02/17/22 14:00 Pulse Ox 98 02/17/22 14:00 O2 Del Method 02/17/22 14:00 Weight last 48 hrs Weight 85.275 kg Data NPU : 02/17/22 17:35 A&P Assessment and plan (1) Major depressive disorder, recurrent severe without psychotic features: (2) Nicotine dependence, unspecified, uncomplicated: Qualifiers: Nicotine product type: cigarettes Qualified Code(s): F17.210 - Nicotine dependence, cigarettes, uncomplicated (3) Unspecified personality disorder: (4) Other stimulant dependence, uncomplicated: (5) Alcohol use disorder, severe, dependence: (6) Epigastric pain: (7) Methamphetamine use disorder, severe: Plan This is a 61 year old white woman with a history of trauma, alcohol and methamphetamine use and genetic loading for mental health and addiction issues, who presents after a night of heavy drinking reporting she was not feeling safe, endorsing suicidal and homicidal ideation, and wanting to discuss changes in her medications and treatment at this time. 1. Continue current medications. Increase Effexor XR to 150 mg p.o. daily. We will consider initiating Abilify after we get a lithium level to identify whether an increase is indicated. 2. Encourage individual, group and milieu therapy 3. Continue q-15 minute check for safety 4. Recommend sober living treatment at the highest level of care to which the patient is willing to commit. 5. Placed on [facility] protocol and gather collateral information. Involuntary Hold Information 96 Hour Hold: 96 Hour Involuntary Admission: Yes 96 Hour Hold Ending Date: 02/19/22 96 Hour Hold Ending Time: 14:10 Attestations NPU Medical Necessity Statement*: Inpatient hospitalization is medically necessary and the clinically appropriate intervention at this time. We will monitor medications and make changes as indicated. Likely length of stay is 3-5 days. Coding Level of Care Code Acute Heating Operators Engineer for [facility] Fwd Diagnoses Major depressive disorder, recurrent severe without psychotic features F33.2 Nicotine dependence, unspecified, uncomplicated F17.210 Nicotine product type: cigarettes Unspecified personality disorder F60.9 Other stimulant dependence, uncomplicated F15.20 Alcohol use disorder, severe, dependence F10.20 Epigastric pain R10.13 Methamphetamine use disorder, severe F15.20
[2022-02-17 17:44] LABS: Basophils # 0.1 10^3/uL (0.0-0.1); Basophils % 0.6 %; Eosinophils # 0.3 10^3/uL (0.0-0.8); Hemoglobin 11.1 g/dL (11.5-15.3); Lymphocytes # 2.5 10^3/uL (0.8-4.8); Lymphocytes % 30.6 %; Mean Corpuscular HGB Conc 27.8 g/dL (30.0-36.0); Mean Corpuscular Hemoglobin 31.2 pg (28.0-34.0); Mean Corpuscular Volume 112.4 fl (81-99); Monocytes # 0.3 10^3/uL (0.2-0.9); Monocytes % 3.9 %; Neutrophils # 5.11 10^3/uL (1.8-7.7); Neutrophils % 61.7 %; Nucleated Red Blood Cells % 0 %; Platelet Count 295 10^3/cmm (130-400); Red Blood Count 3.56 10^6/uL (4.1-5.3); Red Cell Distribution Width 13.4 % (12.1-15.1); White Blood Count 8.3 10^3/uL (4.0-10.0)
[2022-02-17 18:08] LABS: Lithium 0.4 mmol/L (0.6-1.2)
[2022-02-17 18:26] LABS: Thyroid Stimulating Hormone 2.42 uIU/mL (0.27-4.20)
[2022-02-17 20:07] VITALS: RESP 18
[2022-02-17] MEDS: quetiapine 100 mg Tablet PO (20:34)
[2022-02-17] MEDS: quetiapine 300 mg Tablet PO (20:34)
[2022-02-18 06:00] VITALS: RESP 18
[2022-02-18] MEDS: venlafaxine ER (24HR) 37.5 mg Capsule 150 MG PO (06:32)
[2022-02-18] MEDS: quetiapine 100 mg Tablet 200 MG PO (06:33)
[2022-02-18] MEDS: thiamine 100 mg Tablet PO (08:03)
[2022-02-18] MEDS: folic acid 1 mg Tablet PO (08:03)
[2022-02-18] MEDS: pantoprazole DR 40 mg Tablet PO (08:03)
[2022-02-18] MEDS: dicyclomine 10 mg Capsule PO ×4 (08:03→20:04)
[2022-02-18] MEDS: multivitamin therapeutic Tablet 1 TAB PO (08:03)
[2022-02-18] MEDS: levothyroxine 75 mcg Tablet PO (08:03)
[2022-02-18] MEDS: atorvastatin 40 mg Tablet 20 MG PO (08:03)
[2022-02-18] MEDS: lithium carbonate 300 mg Capsule PO ×2 (08:04→08:56)
--- NOTE | 2022-02-18 10:18 | PC.NURSE ---
PATIENT STATED SHE HAS SUICIDAL THOUGHTS CONSTANTLY AND JUST WANTS TO BE HAPPY. SHE SAYS SHE THOUGHT ABOUT IT LAST NIGHT AND SAYS SHE WOULD TAKE 120 SEROQUEL THEN LAY DOWN ON THE TRAIN TRACKS A METHOD OF SUICIDE
[2022-02-18] MEDS: haloperidol 5 mg Tablet PO ×2 (11:57→17:12)
[2022-02-18] MEDS: diphenhydrAMINE 50 mg Capsule PO ×2 (11:57→17:11)
--- NOTE | 2022-02-18 13:20 | P.NPUPN_ITS ---
Subjective NPU Subjective: Patient presents today reporting that she is doing a little better. We discussed the plan to increase her lithium to 6 mg p.o. twice daily before making changes to other medications given her low lithium level. She reports a desire to have her situation improved and discharge as soon as poss ible but certainly wanting to feel better. Mental Status Exam MSE Comments: This is well nourished, older white female, looking much older than her stated age, with limited grooming and eye contact. Superficial scratch ashley on her left anterior forearm from SIB. no abnormal movements except for mild psychomotor agitation. Cooperative with exam in mild distress. Speech was slightly decreased volume and normal rate. Mood described as little better, affect is congruent. Thought process, organized. Thought content: patient endorses suicidal and homicidal ideation, no delusions reported but delusions noted, and denies auditory or visual hallucinations though she reports seeing her tv flashing red. Attention and concentration are intact and memory appeared reliable but none were formally tested. She is alert and oriented times three. Insight and judgment are limited. Impulse control is limited. Vitals/I&O/Wt Last Vital Signs Temp 97.4 F L 02/17/22 14:00 Pulse 90 02/17/22 14:00 Resp 18 02/18/22 06:00 BP 106/72 02/17/22 14:00 Pulse Ox 98 02/17/22 14:00 O2 Del Method 02/17/22 14:00 Weight last 48 hrs Weight 85.275 kg Data NPU : 02/17/22 17:35 A&P Assessment and plan (1) Major depressive disorder, recurrent severe without psychotic features: (2) Nicotine dependence, unspecified, uncomplicated: Qualifiers: Nicotine product type: cigarettes Qualified Code(s): F17.210 - Nicotine dependence, cigarettes, uncomplicated (3) Unspecified personality disorder: (4) Other stimulant dependence, uncomplicated: (5) Alcohol use disorder, severe, dependence: (6) Epigastric pain: (7) Methamphetamine use disorder, severe: Plan This is a 61 year old white woman with a history of trauma, alcohol and methamphetamine use and genetic loading for mental health and addiction issues, who presents after a night of heavy drinking reporting she was not feeling safe, endorsing suicidal and homicidal ideation, and wanting to discuss changes in her medications and treatment at this time. 1. Continue current medications. Increase Effexor XR to 150 mg p.o. daily. We will consider initiating Abilify, but increase lithium to 600 mg p.o. twice daily for now and recheck lithium level in 5 to 7 days. 2. Encourage individual, group and milieu therapy 3. Continue q-15 minute check for safety 4. Recommend sober living treatment at the highest level of care to which the patient is willing to commit. Involuntary Hold Information 96 Hour Hold: 96 Hour Involuntary Admission: Yes 96 Hour Hold Ending Date: 02/19/22 96 Hour Hold Ending Time: 14:10 Attestations U Medical Necessity Statement*: Inpatient hospitalization is medically necessary and the clinically appropriate intervention at this time. We will monitor medications and make changes as indicated. Likely length of stay is 2-4 days. Coding Level of Care Code Acute Housekeeping Aide for [facility] Fwd Diagnoses Major depressive disorder, recurrent severe without psychotic features F33.2 Nicotine dependence, unspecified, uncomplicated F17.210 Nicotine product type: cigarettes Unspecified personality disorder F60.9 Other stimulant dependence, uncomplicated F15.20 Alcohol use disorder, severe, dependence F10.20 Epigastric pain R10.13 Methamphetamine use disorder, severe F15.20
[2022-02-18] MEDS: OLANZapine 5 mg ODT PO (13:53)
[2022-02-18 14:00] VITALS: BP 102/66; PULSE 77; RESP 18; TEMP 36.7; O2SAT 96
[2022-02-18] MEDS: simethicone 80 mg Chew PO (14:53)
[2022-02-18] MEDS: lithium carbonate 300 mg Capsule 600 MG PO (20:03)
[2022-02-18] MEDS: quetiapine 100 mg Tablet PO (20:03)
[2022-02-18] MEDS: quetiapine 300 mg Tablet PO (20:03)
[2022-02-18 20:05] VITALS: BP 101/61; PULSE 89; RESP 18; TEMP 36.8; O2SAT 94
[2022-02-19] MEDS: venlafaxine ER (24HR) 150 mg Capsule PO (05:38)
[2022-02-19] MEDS: quetiapine 100 mg Tablet 200 MG PO (05:38)
[2022-02-19 06:00] VITALS: BP 117/77; PULSE 78; RESP 16; TEMP 36.8; O2SAT 95
[2022-02-19] MEDS: folic acid 1 mg Tablet PO (07:27)
[2022-02-19] MEDS: lithium carbonate 300 mg Capsule 600 MG PO ×2 (07:27→19:50)
[2022-02-19] MEDS: multivitamin therapeutic Tablet 1 TAB PO (07:28)
[2022-02-19] MEDS: thiamine 100 mg Tablet PO (07:28)
[2022-02-19] MEDS: levothyroxine 75 mcg Tablet PO (07:28)
[2022-02-19] MEDS: atorvastatin 40 mg Tablet 20 MG PO (07:28)
[2022-02-19] MEDS: pantoprazole DR 40 mg Tablet PO (07:28)
[2022-02-19] MEDS: dicyclomine 10 mg Capsule PO ×4 (07:29→19:51)
[2022-02-19] MEDS: hyDROXYzine 25 mg Capsule 50 MG PO (10:01)
[2022-02-19] MEDS: OLANZapine 5 mg ODT PO (13:30)
[2022-02-19] MEDS: diphenhydrAMINE 50 mg Capsule PO (13:30)
[2022-02-19] MEDS: acetaminophen 325 mg Tablet 650 MG PO (13:33)
--- NOTE | 2022-02-19 13:37 | W.PM.NPUPNS ---
Subjective NPU Subjective: Patient presented today reporting that she is feeling a bit better working with the treatment team and she is endorsing less concern for safety and we talked about discharge in 48 hours. She has some supports that will be available for her on Saturday and we discussed working on a medical bed given that she needs to have her head raised to 30 degrees at least and the wedges and pillows have been ineffective. She endorses it has been taught her being hospital for treatment of not prescribing the pain medications that she has had at times in the outpatient setting. Mental Status Exam MSE Comments: This is well nourished, older white female, looking much older than her stated age, with limited grooming and eye contact. Superficial scratch ashley on her left anterior forearm from SIB. no abnormal movements. Cooperative with exam in no acute distress. Speech was slightly decreased volume and normal rate. Mood described as little better, affect is congruent. Thought process, organized. Thought content: patient endorses suicidal and homicidal ideation, no delusions reported but delusions noted, and denies auditory or visual hallucinations though she reports seeing her tv flashing red. Attention and concentration are intact and memory appeared reliable but none were formally tested. She is alert and oriented times three. Insight and judgment are limited. Impulse control is limited. Vitals/I&O/Wt Last Vital Signs Temp 98.3 F 02/19/22 06:00 Pulse 78 02/19/22 06:00 Resp 16 02/19/22 06:00 BP 117/77 02/19/22 06:00 Pulse Ox 95 02/19/22 06:00 O2 Del Method 02/18/22 14:00 Weight last 48 hrs Weight 85.275 kg Data NPU : 02/17/22 17:35 A&P Assessment and plan (1) Major depressive disorder, recurrent severe without psychotic features: (2) Nicotine dependence, unspecified, uncomplicated: Qualifiers: Nicotine product type: cigarettes Qualified Code(s): F17.210 - Nicotine dependence, cigarettes, uncomplicated (3) Unspecified personality disorder: (4) Other stimulant dependence, uncomplicated: (5) Alcohol use disorder, severe, dependence: (6) Epigastric pain: (7) Methamphetamine use disorder, severe: Plan This is a 61 year old white woman with a history of trauma, alcohol and methamphetamine use and genetic loading for mental health and addiction issues, who presents after a night of heavy drinking reporting she was not feeling safe, endorsing suicidal and homicidal ideation, and wanting to discuss changes in her medications and treatment at this time. 1. Continue current medications. Increase Effexor XR to 150 mg p.o. daily. We will consider initiating Abilify, but increased lithium to 600 mg p.o. twice daily for now and recheck lithium level in 5 to 7 days. 2. Encourage individual, group and milieu therapy 3. Continue q-15 minute check for safety 4. Recommend sober living treatment at the highest level of care to which the patient is willing to commit. 5. Order placed for a medical bed/hospital bed at home as she either had elevated delusional degrees and wedges and pillows have been ineffective. Involuntary Hold Information 96 Hour Hold: 96 Hour Involuntary Admission: Yes 96 Hour Hold Ending Date: 02/19/22 96 Hour Hold Ending Time: 14:10 Attestations NPU Medical Necessity Statement*: Inpatient hospitalization is medically necessary and the clinically appropriate intervention at this time. We will monitor medications and make changes as indicated. Likely length of stay is 1-3 days. 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
[2022-02-19 14:00] VITALS: BP 115/79; PULSE 75; RESP 20; TEMP 36.6; O2SAT 100
[2022-02-19] MEDS: LORazepam 2 mg Tablet PO (16:28)
[2022-02-19] MEDS: quetiapine 300 mg Tablet PO (19:50)
[2022-02-19] MEDS: quetiapine 100 mg Tablet PO (19:50)
[2022-02-19 20:04] VITALS: BP 123/84; PULSE 87; RESP 18; TEMP 36.8; O2SAT 96
[2022-02-20 06:00] VITALS: BP 118/83; PULSE 83; RESP 19; TEMP 36.8; O2SAT 98
[2022-02-20] MEDS: quetiapine 100 mg Tablet 200 MG PO (07:04)
[2022-02-20] MEDS: venlafaxine ER (24HR) 150 mg Capsule PO (07:04)
--- NOTE | 2022-02-20 08:24 | PC.NURSE ---
Patient denies HI and AH/VH. Patient endorses suicidal thoughts that she says she has every day. She states she has decided suicide by train isn't how she wants to kill herself anymore, but that she's trying to think of a different way. She states, I don't really have anything to live for. She has talked this morning about buying a guinea pig and a fish when she leaves here. Patient does state she feels somewhat better this morning because she got a good nights rest.
[2022-02-20] MEDS: thiamine 100 mg Tablet PO (09:24)
[2022-02-20] MEDS: dicyclomine 10 mg Capsule PO ×4 (09:24→20:49)
[2022-02-20] MEDS: lithium carbonate 300 mg Capsule 600 MG PO ×2 (09:24→20:46)
[2022-02-20] MEDS: levothyroxine 75 mcg Tablet PO (09:24)
[2022-02-20] MEDS: atorvastatin 40 mg Tablet 20 MG PO (09:24)
[2022-02-20] MEDS: pantoprazole DR 40 mg Tablet PO (09:24)
[2022-02-20] MEDS: multivitamin therapeutic Tablet 1 TAB PO (09:24)
[2022-02-20] MEDS: folic acid 1 mg Tablet PO (09:24)
[2022-02-20] MEDS: ondansetron 4 MG Tablet PO (09:48)
[2022-02-20] MEDS: simethicone 80 mg Chew PO (09:48)
--- NOTE | 2022-02-20 12:44 | W.PM.NPUPNS ---
Subjective NPU Subjective: Patient presented today reporting that she is feeling better overall. She did have an episode where there was a patient's misbehaving and she got engaged in the interaction. She talked about having which she described as perceptual disturbances that we talked about the situation and it likely was related to her anger as well as some reticence about discharging given that she has connected with the staff and felt cared for and safe on the unit. We discussed the plan for discharge in the morning. Mental Status Exam MSE Comments: This is well nourished, older white female, looking much older than her stated age, with limited grooming and eye contact. Superficial scratch ashley on her left anterior forearm from SIB. no abnormal movements. Cooperative with exam in no acute distress. Speech was slightly decreased volume and normal rate. Mood described as better, affect is congruent. Thought process, organized. Thought content: patient denied suicidal and homicidal ideation, no delusions reported or noted, and endorsed auditory but denied visual hallucinations though the voices likely represented a stress reaction or misinterpretation. Attention and concentration are intact and memory appeared reliable but none were formally tested. She is alert and oriented times three. Insight and judgment are improving. Impulse control is limited, but improving. Vitals/I&O/Wt Last Vital Signs Temp 98.2 F 02/20/22 06:00 Pulse 83 02/20/22 06:00 Resp 19 H 02/20/22 06:00 BP 118/83 02/20/22 06:00 Pulse Ox 98 02/20/22 06:00 O2 Del Method 02/19/22 14:00 Data NPU : 02/17/22 17:35 A&P Assessment and plan (1) Major depressive disorder, recurrent severe without psychotic features: (2) Nicotine dependence, unspecified, uncomplicated: Qualifiers: Nicotine product type: cigarettes Qualified Code(s): F17.210 - Nicotine dependence, cigarettes, uncomplicated (3) Unspecified personality disorder: (4) Other stimulant dependence, uncomplicated: (5) Alcohol use disorder, severe, dependence: (6) Epigastric pain: (7) Methamphetamine use disorder, severe: Plan This is a 61 year old white woman with a history of trauma, alcohol and methamphetamine use and genetic loading for mental health and addiction issues, who presents after a night of heavy drinking reporting she was not feeling safe, endorsing suicidal and homicidal ideation, and wanting to discuss changes in her medications and treatment at this time. 1. Continue current medications. Increase Effexor XR to 150 mg p.o. daily. We will consider initiating Abilify, but increased lithium to 600 mg p.o. twice daily for now and recheck lithium level in 5 to 7 days. 2. Encourage individual, group and milieu therapy 3. Continue q-15 minute check for safety 4. Recommend sober living treatment at the highest level of care to which the patient is willing to commit. 5. Order placed for a medical bed/hospital bed at home as she needs her bed elevated at least 30 degrees and wedges and pillows have been ineffective for comfort and improvement of nighttime breathing. Involuntary Hold Information 96 Hour Hold: 96 Hour Involuntary Admission: Yes 96 Hour Hold Ending Date: 02/19/22 96 Hour Hold Ending Time: 14:10 Attestations U Medical Necessity Statement*: Inpatient hospitalization is medically necessary and the clinically appropriate intervention at this time. We will monitor medications and make changes as indicated. Plan for discharge in the morning. Coding Level of Care Code Acute Esthetician Makeup Artist for [facility] Fwd Diagnoses Major depressive disorder, recurrent severe without psychotic features F33.2 Nicotine dependence, unspecified, uncomplicated F17.210 Nicotine product type: cigarettes Unspecified personality disorder F60.9 Other stimulant dependence, uncomplicated F15.20 Alcohol use disorder, severe, dependence F10.20 Epigastric pain R10.13 Methamphetamine use disorder, severe F15.20
[2022-02-20] MEDS: haloperidol 5 mg Tablet PO (13:26)
[2022-02-20] MEDS: diphenhydrAMINE 50 mg Capsule PO (13:26)
[2022-02-20] MEDS: LORazepam 2 mg Tablet PO (13:26)
--- NOTE | 2022-02-20 13:27 | PC.NURSE ---
Patient approached nurses' desk and stated, I'm hearing voices! This RN asked what the voices were saying and the patient said, to hurt myself. They're bad. It's bad. She was clearly agitated, bouncing up and down on her feet but being very respectful to the nurses. This occurred not long after another patient had been screaming and cursing in the hallway. The patient had also been making calls to try to make dentist appointments and eye appointments and was verbally expressing that it was stressing her out. Patient given 5 mg of haldo, 2 mg of ativan, and 50 mg diphenhydramine.
[2022-02-20 14:00] VITALS: BP 128/86; PULSE 71; RESP 18; TEMP 36.6; O2SAT 98
[2022-02-20] MEDS: OLANZapine 5 mg ODT PO (16:44)
[2022-02-20 20:18] VITALS: BP 108/67; PULSE 101; RESP 18; O2SAT 97
[2022-02-20] MEDS: quetiapine 300 mg Tablet PO (20:47)
[2022-02-20] MEDS: quetiapine 100 mg Tablet PO (20:49)
[2022-02-21] MEDS: venlafaxine ER (24HR) 150 mg Capsule PO (05:52)
[2022-02-21] MEDS: quetiapine 100 mg Tablet 200 MG PO (05:52)
[2022-02-21 06:00] VITALS: BP 120/82; PULSE 72; RESP 18; O2SAT 100
[2022-02-21] MEDS: acetaminophen 325 mg Tablet 650 MG PO (07:01)
[2022-02-21] MEDS: LORazepam 2 mg Tablet PO (07:02)
[2022-02-21] MEDS: pantoprazole DR 40 mg Tablet PO (07:47)
[2022-02-21] MEDS: folic acid 1 mg Tablet PO (07:47)
[2022-02-21] MEDS: atorvastatin 40 mg Tablet 20 MG PO (07:47)
[2022-02-21] MEDS: dicyclomine 10 mg Capsule PO ×2 (07:48→13:06)
[2022-02-21] MEDS: multivitamin therapeutic Tablet 1 TAB PO (07:48)
[2022-02-21] MEDS: thiamine 100 mg Tablet PO (07:48)
[2022-02-21] MEDS: levothyroxine 75 mcg Tablet PO (07:48)
--- NOTE | 2022-02-21 08:18 | DCPLANNER ---
IMM completed with pt on 02/21/22 @ 5472. Pt was given a copy of her rights and stated sje understood her rights.
[2022-02-21] MEDS: lithium carbonate 300 mg Capsule 600 MG PO (09:41)
--- NOTE | 2022-02-21 12:26 | W.PM.NPUDCS ---
Diagnoses at Discharge Discharge Diagnosis (1) Major depressive disorder, recurrent severe without psychotic features: Status: Acute (2) Nicotine dependence, unspecified, uncomplicated: Status: Acute Qualifiers: Nicotine product type: cigarettes Qualified Code(s): F17.210 - Nicotine dependence, cigarettes, uncomplicated (3) Unspecified personality disorder: Status: Acute (4) Other stimulant dependence, uncomplicated: Status: Inactive (5) Alcohol use disorder, severe, dependence: Status: Acute (6) Epigastric pain: Status: Resolved Permanent problem details: Hiatal hernia was appreciated otherwise normal gastric anatomy status post gastric bypass except for a dilated gastrojejunostomy. (7) Methamphetamine use disorder, severe: Status: Acute Reason for Visit Reason for Visit: SI Brief History: Yolie Mccann is a 61 year old female who presents the outside hospital with concern for suicidal thoughts, intoxicated with a history of other addiction as well who was transferred to [facility] and admitted to the neuropsychiatric unit for definitive treatment of those issues. She is currently taking Effexor, Seroquel, and [place]. She presents today reporting she ?fell apart? last night and needed to go to a safe place. She has been psychiatrically hospitalized 4 times, sees a nurse practitioner for her medications and has been on a number of medications. She reports she quit tobacco in August 2020, alcohol daily, marijuana once or twice but not currently, methamphetamine which she began at 45 years old and stopped a year ago and denies any other illicit drug use. She has been to several rehabs over the course of her life, had a DUI 9 years ago but no other drug and alcohol related charges. Her mental health issues began in elementary school as people were bullying her at the time. Her depression includes passive wish, suicidal ideation, and 12 suicide attempts. She endorses having a plan to take Klonopin with beer to commit suicide. She reports self-injurious behaviors, the last time of which was a couple of years ago. She had begun drinking when she was 10 years old which became problematic in high school. She had presented to the hospital after drinking heavily and reports she does not know where she is currently as they had just placed us here. She denies expressing suicidal ideation in the hospital and endorses she only needs help ?mellowing herself out?. Psychiatric History: As above. Substance Abuse History: As above. Family History: She reports mental health and addiction issues on both sides of the family and denies suicide attempts or completions on either side of the family. Developmental History: She denies any issues with her or , learned to walk and talk and met her developmental milestones on time, and denies any need for speech therapy, learning support, emotional support or special education classes. Psychosocial History: She reports her parents were together when she was born and remained together. She has a younger brother who is a product of the same union. Neither of her parents have any additional children. She described her childhood as alright and reports emotional abuse from school but denies physical or sexual abuse. She denies CYS involvement. She was attacked by her services dog and required 40 stitches. She graduated high school and got her PhD in veterinary medicine. She endorses being heterosexual with her longest relationship being 10 years. She has been and once, has 2 biological children, has never been in the and endorses being church. 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 She currently lives in an apartment by herself with her dog. Legal History: She has been to penitentiary 3 times, the longest time of which was 6 months. Medical History: She reports an allergy to morphine. She reports having had bilateral knee replacements and unilateral ankle replacement. 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 She delivered her children vaginally. She began menstruating around 11 and reports they were normal. Hospital Course Hospital Course She slowly acclimated to the individual, group and milieu therapies provided.? She reported struggling with psychosocial stressors as alcohol patient history of addiction for living arrangements depression and altered mental status. We increased the Effexor XR to 150 mg p.o. daily the lithium to 600 mg daily added thiamine as well. The treatment team was able to find her safe living arrangements. She was able to contract for safety outside of the hospital prior to discharge and showed marked improvement.? At the outside hospital, patient had routine laboratory studies which were within normal limits except for few outliers.? Additionally there was a general medical evaluation which was also within normal limits and revealed no new acute processes. Discharge Summary: At the time of discharge, she denied psychosis or lethality.? Mood and anxiety were well managed.? Patient endorsed a plan to avoid all drugs of abuse and follow-up with the aftercare recommendations of the treatment team.? Patient was evaluated and deemed to be absent credible lethality, and had achieved the maximum benefit from an inpatient hospitalization, so was discharged. Involuntary Hold Information 96 Hour Hold: 96 Hour Involuntary Admission: Yes 96 Hour Hold Ending Date: 02/19/22 96 Hour Hold Ending Time: 14:10 Mental Status Exam MSE Comments: This is well nourished, older white female, looking much older than her stated age, with limited grooming and eye contact. Superficial scratch ashley on her left anterior forearm from SIB. no abnormal movements. Cooperative with exam in no acute distress. Speech was slightly decreased volume and normal rate. Mood described as better, affect is congruent. Thought process, organized. Thought content: patient denied suicidal and homicidal ideation, no delusions reported or noted, and endorsed auditory but denied visual hallucinations though the voices likely represented a stress reaction or misinterpretation. Attention and concentration are intact and memory appeared reliable but none were formally tested. She is alert and oriented times three. Insight and judgment are improving. Impulse control is limited, but improving. Discharge Data Studies Completed and Pending: Laboratory Results WBC 8.3 10^3/uL (4.0- 10.0) 02/17/22 17:35 RBC 3.56 10^6/uL (4.1 -5.3) L 02/17/22 17:35 Hgb 11.1 g/dL (11.5-1 5.3) L 02/17/22 17:35 Hct 40.0 % (37.0-47.0 ) 02/17/22 17:35 MCV 112.4 fl (81-99) H 02/17/22 17:35 MCH 31.2 pg (28.0-34. 0) 02/17/22 17:35 MCHC 27.8 g/dL (30.0-3 6.0) L 02/17/22 17:35 RDW 13.4 % (12.1-15.1 ) 02/17/22 17:35 Plt Count 295 10^3/cmm (130 -400) 02/17/22 17:35 MPV 10.0 fL (7.4-10.4 ) 02/17/22 17:35 Neut % (Auto) 61.7 % 02/17/22 17:35 Lymph % (Auto) 30.6 % 02/17/22 17:35 Greer % (Auto) 3.9 % 02/17/22 17:35 Eos % (Auto) 3.0 % 02/17/22 17:35 Baso % (Auto) 0.6 % 02/17/22 17:35 Neut # (Auto) 5.11 10^3/uL (1.8 -7.7) 02/17/22 17:35 Lymph # (Auto) 2.5 10^3/uL (0.8- 4.8) 02/17/22 17:35 Greer # (Auto) 0.3 10^3/uL (0.2- 0.9) 02/17/22 17:35 Eos # (Auto) 0.3 10^3/uL (0.0- 0.8) 02/17/22 17:35 Baso # (Auto) 0.1 10^3/uL (0.0- 0.1) 02/17/22 17:35 Nucleated RBC % (a uto) 0 % 02/17/22 17:35 Nucleated RBCs # 0.0 /100WBC 02/17/22 17:35 TSH 2.42 uIU/mL (0.27 -4.20) 02/17/22 17:35 [place] 0.4 mmol/L (0.6-1 .2) L 02/17/22 17:35 Vitals: Last Vital Signs Temp 98 F 02/20/22 14:00 Pulse 72 02/21/22 06:00 Resp 18 02/21/22 06:00 BP 120/82 02/21/22 06:00 Pulse Ox 100 02/21/22 06:00 O2 Del Method 02/20/22 14:00 Discharge Plan Discharge Patient Disposition: Home Condition: Stable Prescriptions: New venlafaxine 150 mg Capsule,Extended Release 24hr 150 mg PO QAM 30 Days Qty: 30 1RF Vitamin B-1 (mononitrate) 100 mg Tablet 100 mg PO DAILY 30 Days Qty: 30 1RF lithium carbonate 300 mg Capsule 600 mg PO 0900,2100 30 Days Qty: 120 1RF Continued levothyroxine 75 mcg capsule 75 mcg PO DAILY Qty: 30 2RF folic acid 1 mg tablet 1 mg PO DAILY Qty: 30 0RF atorvastatin 10 mg tablet 10 mg PO DAILY dicyclomine 10 mg capsule 10 mg PO QID omeprazole 20 mg capsule,delayed release(DR/EC) 20 mg PO BID quetiapine 400 mg tablet 400 mg PO BEDTIME quetiapine 200 mg tablet 200 mg PO QAM Discontinued lithium carbonate 300 mg Tablet 300 mg PO BID venlafaxine 37.5 mg capsule,extended release 24hr 112.5 mg PO QAM Discharge Orders: Discharge Order (Routine); Ordered 02/21/22 Ordered By: Torey Diaz Ambulatory Orders: DME: Hospital Bed (Order) Location: None Selected Ordered By: Torey Lopez Referrals: [facility]-Kala Fernandez MD [Other] - 02/28/22 2:00 pm (This is a consult appointment. Go to [facility] parking lot and 2nd floor.) [facility] [Other] (You will need to pickling grader frozen meals at the [facility]. ) [facility] [place] (Hospital bed ordered and will be sent after returning home) [facility] [Outside] - 1-3 days (Walk in from Saturday through Saturday 7:30 am to 3:00 pm. Your application has been given to [facility]. ) Viktoria Fernando PA [Referring] - 02/26/22 10:30 am (Follow up) Discharge Diet: Regular Discharge Activity: Resume usual activity Patient Instructions: [place] (By mouth) (Lith-Estelita, Lithate, Lithobid), Venlafaxine (By mouth) (Effexor, Effexor XR), Methamphetamine Abuse, Depression Management for Older Adults (DC), Opioid Safety Discharge Attestations NPU Time Spent in Discharge Care*: less than 30 min Specific Discharge Activities: Specific discharge activities: educating patient, discussing with egg caser/social workers/dc planners, documenting/other paperwork and evaluating patient/reviewing data Coding Level of Care Code Acute Chg FW DC note Diagnoses Major depressive disorder, recurrent severe without psychotic features F33.2 Nicotine dependence, unspecified, uncomplicated F17.210 Nicotine product type: cigarettes Unspecified personality disorder F60.9 Other stimulant dependence, uncomplicated F15.20 Alcohol use disorder, severe, dependence F10.20 Epigastric pain R10.13 Methamphetamine use disorder, severe F15.20
[2022-02-21 12:46] VITALS: BP 120/82; PULSE 72; RESP 18; TEMP 36.6; O2SAT 100
== END 2022-02-21 14:31 | disposition home or self-care (01) | DRG 885 ==
PROVIDERS: Admitting Provider Psychiatry & Neurology Psychiatry; PCP Family Medicine; Visit Provider Psychiatry & Neurology Psychiatry
DX: F33.2 Major depressive disorder, recurrent severe without psychotic features (principal); R45.851 Suicidal ideations; F15.20 Other stimulant dependence, uncomplicated; F10.20 Alcohol dependence, uncomplicated; Z96.653 Presence of artificial knee joint, bilateral; Z93.3 Colostomy status; F17.210 Nicotine dependence, cigarettes, uncomplicated; F60.9 Personality disorder, unspecified
CPT/HCPCS: 80178; 84443; 85025; 97150; 97165; Q0162; Q0163